=== PATIENT | female | born 1965 | race Caucasian/White ===

== ENCOUNTER 2018-05-16 05:02 | Emergency (ER) | payer OTHER ==
[2018-05-16] MEDS: ASPIRIN 81 MG TAB PO (05:57)
[2018-05-16 05:58] LABS: ADD MAN DIFF? NO
[2018-05-16 06:00] LABS: WHITE BLOOD COUNT 8.5 10^3/ul (4.8-10.8)
[2018-05-16 06:00] LABS: BASOPHILS % 0.2 % (0.0-2.0); EOSINOPHILS # 0.1 10^3/ul (0.0-0.5); EOSINOPHILS % 1.5 % (0.0-7.0); HEMATOCRIT 38.9 % (37.0-47.0); LYMPHOCYTES # 1.2 10^3/ul (0.8-2.9); LYMPHOCYTES % 13.6 % (15.0-51.0); MEAN CORPUSCULAR HEMOGLOBIN 28.8 pg (29.0-33.0); MEAN CORPUSCULAR HGB CONC 30.8 g/dl (32.0-37.0); MEAN CORPUSCULAR VOLUME 93.5 fl (82.0-101.0); MEAN PLATELET VOLUME 10.1 fl (7.4-10.4); MONOCYTE # 0.7 10^3/ul (0.3-0.9); NEUTROPHIL # 6.4 10^3/ul (1.6-7.5); NEUTROPHILS % 75.9 % (39.0-77.0); PLATELET COUNT 302 10^3/UL (140-415); RED BLOOD COUNT 4.16 10^6/ul (4.20-5.40); RED CELL DISTRIBUTION WIDTH 13.2 % (11.5-14.5)
[2018-05-16 06:26] LABS: ANION GAP 13 (5-13); BLOOD UREA NITROGEN 10 mg/dl (7-20); CALCIUM 9.1 mg/dl (8.4-10.2); CARBON DIOXIDE 22 mmol/L (21-31); CHLORIDE 105 mmol/L (97-110); CREATININE 0.57 mg/dl (0.44-1.00); Estimated GFR > 60 mL/min (>60); GLUCOSE 102 mg/dl (70-220); POTASSIUM 4.3 mmol/L (3.5-5.1); SODIUM 140 mmol/L (135-144)
[2018-05-16 06:38] LABS: TROPONIN-I < 0.012 ng/ml (0.000-0.120)
[2018-05-16] MEDS ORDERED: NORepinephrine 8MG/250 ML (PMX 250 ML IV (06:39)
[2018-05-16] MEDS: FAMOTIDINE 20 MG INJ IV (07:51)
[2018-05-16] MEDS: BELLADONNA/PHENOBARBITAL TAB PO (07:51)
[2018-05-16] MEDS: LIDOCAINE/MYLANTA 40 ML BTL PO (07:52)
[2018-05-16 09:40] LABS: TROPONIN-I < 0.012 ng/ml (0.000-0.120)
== END 2018-05-16 10:41 | disposition home or self-care (01) ==
LOC: E/R 05:02
DX: R10.13 Epigastric pain (principal); R07.89 Other chest pain
CPT/HCPCS: 36415; 71045; 80048; 84484; 85025; 93005; 96374; 99285-25